=== PATIENT | female | born 1960 | race Caucasian/White ===

== ENCOUNTER 2025-05-08 08:09 | Inpatient (IN) | payer BC ==
[~2025-05-08] VITALS: Ht 149.9 cm; Wt 48.5 kg
[2025-05-08 09:02] LABS: MEAN PLATELET VOLUME 7.0 FL (7.4-10.4); RED CELL DISTRIBUTION WIDTH 13.8 % (11.5-14.5)
[2025-05-08 09:05] LABS: LEUKOCYTE ESTERASE ,URINE NEGATIVE (Neg); NITRITES, URINE NEGATIVE (Neg); OCCULT BLOOD,URINE NEGATIVE (Neg)
[2025-05-08 09:06] LABS: UA COLLECTION TYPE NON-SPECIFIED
[2025-05-08 09:19] LABS: CREATININE 0.93 MG/DL (0.40-0.90); TOTAL CARBON DIOXIDE 29.4 MMOL/L (24-32); eCRCL 42 ML/MIN; eGFR 61 ML/MIN
--- NOTE | 2025-05-08 10:15 | Physician Documentation ---
History of Present Illness ~ Chief Complaint: Abdominal Pain Stated Complaint: GALLBLADDER PAIN Time Seen by MD: 09:17 Source: patient Mode of Arrival: POV, Ambulatory Exam Limitations: no limitations HPI Chief Complaint: Abdominal pain Caveat: None Independent Historians: None History of Present Illness: Patient is a 64-year-old woman who is referred here from Dr. Barnard for abdominal pain elevated CA 125 and biliary sludge. Patient denies any fever. Patient has started having pain April 15. Has been intermittent and then severe over the last week. Patient is unable to sleep. Patient describes the pain as sharp and stabbing in her right upper quadrant. She states it feels like she has a baseball in her abdomen in the right upper quadrant. Patient has severe nausea. No vomiting, no diarrhea. Review of systems: All systems were reviewed and are negative except for what is indicated in the history of present illness. Past Medical History: Hypothyroidism Past Surgical History: None Social History: No tobacco use, no alcohol use, no drug use Medications: Reviewed as documented Nursing Notes Allergies: Reviewed as documented in Nursing Notes Medication Reconciliation Allergies: Coded Allergies: No Known Allergies (Unverified , 05/08/25) Scheduled Hydroxyzine Hcl* (Atarax*), 1 TAB PO DAILY, (Reported) Levothyroxine Sodium (Levothyroxine Sodium), 1 TAB PO DAILY, (Reported) Metoprolol Succinate (Metoprolol Succinate), 1 TAB PO HS, (Reported) Scheduled PRN Ibuprofen (Ibuprofen), 1 TAB PO DAILY PRN for pain, (Reported) Miscellaneous Medications Lorazepam (Ativan), (Reported) Review of Systems All Other Systems at this time: Reviewed and Negative ROS Patient denies any other acute symptoms other than above. All other systems are negative Physical Exam Vital Signs: RN Vital Signs have been reviewed: Yes, Temperature: 97.6, Source: Temporal, Heart Rate: 95, Respiratory Rate: 18, BP: 132/69, Pulse Oximetry: 99, Weight: 48.500 Oxygen Flow Rate: 0 Pulse Oximetry Reflects: adequate oxygenation Physical Exam General Appearance: Mild HEENT: Normal OP, moist oral mucosa, PERRL, EOMI Neck: supple, normal ROM, trachea midline Pulmonary: No respiratory distress, CTA, BS equal Cardiac: RRR, no murmur, rub or gallop, GI: nondistended, soft, right upper quadrant tenderness, normal bowel sounds, no guarding, no rebound Extremities: normal ROM, no swelling, non-tender Skin: intact, dry, warm, no rashes Neuro: AAOx3, speech is clear, no focal motor weakness Psych: normal affect, good eye contact, no apparent hallucination, normal speech Progress Results/Orders Results/Orders Orders - LAKESHIA COTTO MD Straight Cath For Urine Sample (05/08/25 08:35) Ed Iv Pain Medications (05/08/25 10:07) Monitor (05/08/25 10:07) Saline Lock (05/08/25 10:07) Ct Abdomen Pelvis (05/08/25 12:56) Ultrasound Of Abdomen (05/08/25 11:05) Page Hospitalist (05/08/25 12:20) Fill Out Med Reconciliation (05/08/25 12:20) Completed Orders - LAKESHIA COTTO MD Urinalysis, Cult If Indicated (05/08/25 08:35) Cbc/Diff (05/08/25 08:35) BMP (05/08/25 08:35) CMP (05/08/25 08:35) Type And Screen (05/08/25 08:35) Ondansetron Inj. (Zofran 4mg/2ml Vial) (05/08/25 10:10) Ketorolac Trometh 15mg/Ml Vial (Toradol (05/08/25 10:10) Ct Abdomen Pelvis (05/08/25 12:56) Diatr Meglu/Diatrizoate 30ml (Gastrograf (05/08/25 11:00) Lipase (05/08/25 08:52) Ultrasound Of Abdomen (05/08/25 11:05) Iohexol 300mg/Ml 100ml Inj. (Omnipaque-3 (05/08/25 12:35) Medications Received in ER Medications (Trade) Dose Ordered Sig/Gino Route PRN Reason Start Time Stop Time Status Last Admin Dose Admin (Zofran 4mg/2ml vial) 4 mg ONCE ONCE IV 05/08/25 10:10 05/08/25 10:11 DC 05/08/25 11:12 4 MG (Toradol injection) 15 mg ONCE ONCE IV 05/08/25 10:10 05/08/25 10:11 DC 05/08/25 11:13 15 MG (Gastrografin 66-10 oral solution) 10 ml Q2H PO 05/08/25 11:00 05/08/25 15:01 DC 05/08/25 11:55 10 ML Vital Signs 05/08/25 05/08/25 05/08/25 05/08/25 08:29 09:07 11:13 11:37 Temp 97.6 Pulse 95 80 Resp 16 18 18 18 B/P (MAP) 132/69 124/58 (80) Pulse Ox 99 99 O2 Flow Rate 0 0 Laboratory Tests Test 05/08/25 08:52 05/08/25 08:55 White Blood Count 7.4 Red Blood Count 4.93 Hemoglobin 13.1 Hematocrit 39.6 Mean Corpuscular Volume 80.3 Mean Corpuscular Hemoglobin 26.6 L Mean Corpuscular Hemoglobin Concent 33.1 Red Cell Distribution Width 13.8 Platelet Count 436 Mean Platelet Volume 7.0 L Neutrophils (%) (Auto) 80.4 H Lymphocytes (%) (Auto) 10.1 L Monocytes (%) (Auto) 5.5 Eosinophils (%) (Auto) 3.0 Basophils (%) (Auto) 1.0 Neutrophils # (Auto) 5.9 Lymphocytes # (Auto) 0.7 L Monocytes # (Auto) 0.4 Eosinophils # (Auto) 0.2 Basophils # (Auto) 0.1 CBC Comment Sodium Level 133 L Potassium Level 4.2 Chloride Level 98 L Carbon Dioxide Level 29.4 Anion Gap 6 L Blood Urea Nitrogen 7 Creatinine 0.93 H Estimated GFR/1.73 m2 61 BUN/Creatinine Ratio 7.5 L Glucose Level 85 Calcium Level 8.6 Total Bilirubin 0.5 Aspartate Amino Transf (AST/SGOT) 18 Alanine Aminotransferase (ALT/SGPT) 18 Alkaline Phosphatase 97 Total Protein 7.2 Albumin 3.6 Globulin 3.6 Albumin/Globulin Ratio 1.0 L Lipase 42 Chemistry Comments Urine Specimen Description Non-specified Urine Color Straw Urine Clarity Clear Urine pH 7.0 Urine Specific [place] <=1.005 Urine Protein Negative Urine Glucose (UA) Negative Urine Ketones 15 H Urine Occult Blood Negative Urine Nitrite Negative Urine Bilirubin Negative Urine Urobilinogen 0.2 Urine Leukocyte Esterase Negative Urine Culture Indicated Not ind Volume Urine Centrifuged 10 ml Urine Comment Medical Decision Making Findings Differential diagnosis includes but is not limited to: Biliary colic, cholelithiasis, cholecystitis, pancreatitis, gastritis, duodenitis, ovarian cancer Abdominal ultrasound, indication: Right upper quadrant abdominal pain Impression: 1. Thickened appearing gallbladder wall polyps within the gallbladder. Acute cholecystitis can not be completely excluded given the gallbladder wall thickness, although a negative sonographic flanagan's sign was reported. Correlate with clinical findings. 2. Small amount of free fluid adjacent to the liver and gallbladder. 3. Additional findings as described above. CT of the abdomen and pelvis with IV and oral contrast Impression: Gdcv-[id number]-[id number] ascites with areas of slightly hyperdense peritoneal thickening most prominent within the pelvis and associated scalloping of the liver. 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 Status post hysterectomy. Mild wall thickening of the distal stomach and duodenum which may be due to inadequate distention /surrounding ascites with a gastro duodenitis not completely excluded. Sigmoid diverticulosis with Limited evaluation for diverticulitis given surrounding ascites. Laboratory data independent interpretation: CBC: Unremarkable CMP: Unremarkable Urinalysis: Unremarkable Emergency department course/medical decision-making: Patient presents with ongoing abdominal pain that has worsened. Patient is given morphine 4 mg IV and Zofran 4 mg IV for severe nausea. Patient's ultrasound maybe consistent with acute cholecystitis. Can not be ruled out. However patient does not appear to have a Flanagan's sign. The patient has other concerning findings on her CT scan with hyperdense thickened peritoneum and scalloping of the liver. This is concerning for peritoneal carcinomatosis versus pseudomyxoma peritonie Test results, treatment plan and additional workup and all of the above was discussed with the patient. Consultation/communications: 10:10 a.m.: Case discussed with Dr. Malin. Patient's pain may or may not be secondary to her gallbladder. Patient has had a recent rise in her CA 125. Dr. Malin has recommended admission for further workup and possible cholecystectomy. 12:35 p.m.: Case discussed with our hospitalist Dr. Mendoza. He will evaluate her for admission. Proximally 2:00 p.m.: Case discussed with Dr. Malin regarding CT findings. He recommends diagnostic paracentesis with pathology. No cholecystectomy until pathology results obtained. Departure Disposition: ADMITTED INPATIENT Admitted to Inpatient Unit: to hospitalist Admission Level of Care: Med/Surg Impression: Primary Impression: Abdominal pain Qualified Codes: R10.11 - Right upper quadrant pain Condition: Stable Education Educated: Patient, Family Educated regarding: diagnosis, treatment Signature Scribe Signature: No scribe Attestation: No scribe LAKESHIA COTTO MD May 08, 2025 10:15
[2025-05-08] MEDS: ondansetron/PF 4mg/2ml inj IV ONE (11:12)
[2025-05-08] MEDS: ketorolac trometh 15mg/ml vial 15 MG/ML ML IV ONE (11:13)
[2025-05-08] MEDS: diatr meglu/diatrizoate 30ml oral sol.-(3 dose) bottle PO SCH (11:17)
[2025-05-08] MEDS ORDERED: iohexol 300mg/ml 100ml inj. ONE (12:35)
--- NOTE | 2025-05-08 12:52 | RADIOLOGY REPORT ---
CLINICAL INFORMATION: 64 years old, Female; Abdominal Pain R/O Gallbladder. TECHNIQUE: Grayscale sonographic imaging of the right upper quadrant of the abdomen was performed, a ssisted by color Doppler techniques. COMPARISON: None FINDINGS: The gallbladder wall measures 3.7 mm in thickness, abnormally thickened. There are polyp s visualized in the gallbladder, measuring up to 0.5 cm and 0.3 cm, respectively. Small amount of geri e fluid adjacent to the liver and gallbladder. Negative reported sonographic Flanagan's sign. The commo n bile duct measures 2.9 mm in diameter, within normal limits. Increased echogenicity of the liver suggesting fatty infiltration. Liver is within normal limits in s ize. Normal hepatopetal flow in the portal vein. The pancreas is mostly obscured by bowel gas. The right kidney measures 9.3 cm. There is no hydronephrosis. Right renal cortical echogenicity an d cortical thickness are within normal limits. IMPRESSION: 1. Thickened appearing gallbladder wall polyps within the gallbladder. Acute cholecystitis can not be completely excluded given the gallbladder wall thickness, although a negative sonographic flanagan's s ign was reported. Correlate with clinical findings. 2. Small amount of free fluid adjacent to the liver and gallbladder. 3. Additional findings as described above.
--- NOTE | 2025-05-08 13:22 | RADIOLOGY REPORT ---
Exam: CT CT ABDOMEN PELVIS W/ IV ORAL CONTRAST History: abdominal pain, elevated CA 125 Comparison Study: US ULTRASOUND OF ABDOMEN on DOS: 05/08/25 TECHNIQUE: Multidetector CT of the abdomen and pelvis with IV contrast. Axial, coronal and sagittal m ultiplanar reformats were obtained from the axial data set by the technologist. Radiation Dose Information: CT Dose: CTDI volume is 7.26 mGy. Dose-length product is 459.2 mGy*cm FINDINGS: The lung bases are clear. Partially visualized heart is unremarkable. Liver is normal in size. There are areas of slightly hyperdense Peritoneal thickening most prominent within the pelvis with associated scalloping of the liver. There is associated small to moderate asci kiki. No evidence of intraperitoneal free air. Liver is normal in size. Spleen, gallbladder, pancreas and adrenal glands unremarkable. Kidneys, and ureters unremarkable. Limited evaluation of the urinary bladder due to decompressed stat e with no gross abnormalities noted. Status post hysterectomy. Contrast is noted within the stomach, small and large bowel loops. Mild wall thickening of the distal stomach and duodenum. The remainder of the small bowel loops are contrast filled without significant distention. Appendix is unremarkable. Sigmoid diverticulosis with Limited evaluation for diverticuli tis given ascites. Moderate to large amount of fecal material within the colon. No evidence of aortic aneurysm or dissection. Mild atherosclerotic calcification of the aorta and bi lateral iliacs. Shotty mesenteric lymph nodes. Tiny fat containing umbilical hernia. The soft tissues are unremarkable. No evidence of acute osseou s abnormalities. IMPRESSION: [id number] ascites with areas of slightly hyperdense peritoneal thickening most prominent withi n the pelvis and associated scalloping of the liver. Correlate for pseudomyxoma peritoneal versus per itoneal carcinomatosis. Status post hysterectomy. Mild wall thickening of the distal stomach and duodenum which may be due to inadequate distention /yeung rrounding ascites with a gastro duodenitis not completely excluded. Sigmoid diverticulosis with Limited evaluation for diverticulitis given surrounding ascites.
[2025-05-08] MEDS ORDERED: ondansetron/PF 4mg/2ml inj IV PRN (14:00)
[2025-05-08] MEDS ORDERED: potassium Cl 40MEQ/1/2NS 520ml 520 ML IV PRN (14:00)
[2025-05-08] MEDS ORDERED: magnesium sulf-water 4G/100mL 100 ML IV PRN (14:00)
[2025-05-08] MEDS ORDERED: potassium Cl 20 mEq SR tablet PO PRN ×2 (14:00)
[2025-05-08] MEDS ORDERED: magnesium sulf-water 2g/50mL 50 ML IV PRN (14:00)
[2025-05-08] MEDS ORDERED: mag hydrox/Alum hydrox/simeth 30ml oral suspension PO PRN (14:00)
[2025-05-08] MEDS ORDERED: METO-395 PO (14:17)
[2025-05-08] MEDS ORDERED: HYDR-3686 PO (14:17)
[2025-05-08] MEDS ORDERED: LEVO75TA7 PO (14:17)
[2025-05-08] MEDS ORDERED: LORA-269 PO (14:17)
[2025-05-08] MEDS ORDERED: IBUP-1986 PO (14:17)
--- NOTE | 2025-05-08 14:27 | HISTORY AND PHYSICAL ---
History & Physical Providers to ~ History of Present Illness Reason for Admit\Complaint: Cholecystitis/ possible pseudomyxoma History of Present Illness This is a 64-year-old female who has been follow up periodically by Dr. Valdez for a umbilical hernia the patient recently has been having increased abdominal pain at the mid abdominal region she also for about six months has been experiencing right upper quadrant abdominal pain and can hardly eat any food was seen at [facility] ED a week ago and was sent home the patient has a follow up appointment with Dr. Malin who reviewed the images and recommended the patient go to the ED to have her gallbladder removed the patient also has a history of the ovarian cancer and had a total hysterectomy with bilateral oophorectomy 10 years ago. She has had normal see a CA 125 levels until the most recent lab which was elevated. The patient denies experiencing a fever however does complain of chills and nausea and vomiting and is having difficulty eating any food. The patient is not tolerate opiates and is requesting Toradol for pain management. Allergies: Coded Allergies: No Known Allergies (Unverified , 05/08/25) Home Medications Home Medications Active Reported Metoprolol Succinate 25 Mg Tab.sr.24h 1 Tab PO HS Atarax* (Hydroxyzine HCl) 25 Mg Tablet 1 Tab PO DAILY Ibuprofen 800 Mg Tablet 1 Tab PO DAILY PRN Ativan (Lorazepam) 1 Mg Tablet Levothyroxine Sodium 75 Mcg Tablet 1 Tab PO DAILY Past Medical History Past Medical History Umbilical hernia times 10 years Ovarian cancer (status post total hysterectomy with bilateral salpingo- oophorectomy) cancer free times 10 years Hypothyroidism Past Surgical History Surgical History Comment Total thyroidectomy (secondary to multiple benign masses) Total hysterectomy with bilateral salpingo-oophorectomy Family History Family History: FH: COPD (chronic obstructive pulmonary disease) FATHER MOTHER Past Social History Social History Comment Patient denes history of smoking/ drinking alcohol nor any illicit drug use Full Code Status ROS ROS Except for positives in the HPI the rest of the 14 point review systems is negative Exam Vitals: Vital Signs Date Time Temp Pulse Resp B/P (MAP) Pulse Ox O2 Delivery O2 Flow Rate FiO2 05/08/25 14:18 102 18 138/69 (92) 98 0 05/08/25 08:29 97.6 General: Gen. No acute distress alert and oriented 4 Lungs clear to ascultation bilaterally, no wheezes rales or rhonchi appreciated Heart normal sinus rhythm no murmurs rubs or clicks noted Abdomen soft moderate right upper quadrant tenderness, mild generalized tenderness bowel sounds are normoactive Lower extremities no clubbing cyanosis, nor edema appreciated bilaterally Diagnostic Data Last Recorded Lab Results: 05/08/25 0852 05/08/25 0852 Advance Care Planning Advanced Care plannin - 30 Minutes Problems: (1) Abdominal pain Status: Acute Additional Plan # cholecystitis Dr. 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 Dr. Jones ED physician discussed the findings with Dr. Malin who has requested a diagnostic paracentesis which is ordered along with a cytology of the peritoneal fluid. # hypothyroidism # status post total thyroidectomy for benign masses Continue levothyroxine # hyponatremia Monitor daily CMP # DVT prophylaxis SQ Lovenox I spent a total of 17 minutes on reviewing various resuscitative measures/ ACP with the patient at the time of admission. The patient has decided on full code status Date of Service: May 08, 2025 Billing Provider: RAFAL JAVIER DO Common Visit Codes: [id number] INP/OBS CARE (HIGH) Secondary Visit Codes: [id number] CARE PLAN 30 MINUTES Problem Qualifiers (1) Abdominal pain: Abdominal location: right upper quadrant Qualified Codes: R10.11 - Right upper quadrant pain RAFAL JAVIER DO May 08, 2025 14:27
[2025-05-08] MEDS: normal saline 1000ml 1,000 ML IV SCH (15:24)
[2025-05-08] MEDS: magnesium hydroxide 30ml (MOM) UD suspension PO PRN (15:36)
[2025-05-08] MEDS: piperacillin/tazo 4.5gm/100ml 100 ML IV SCH (16:25)
[2025-05-08 16:50] VITALS: BP 125/51; PULSE 76; RESP 16; TEMP 98.1; O2SAT 98
[2025-05-08 18:00] VITALS: BP 125/62; PULSE 84; RESP 14; TEMP 98.6; O2SAT 98
[2025-05-08] MEDS: SINCALIDE IV ONE (20:00)
[2025-05-08] MEDS: NORMAL SALINE IV ONE (20:00)
[2025-05-08] MEDS: docusate sod 100mg capsule PO SCH (20:00)
[2025-05-08 20:15] VITALS: RESP 16; O2SAT 97
--- NOTE | 2025-05-08 20:39 | PROGRESS NOTE ---
Progress Note ID Providers to CC ~ Progress Note Progress Note: pt seen-ct noted-pt needs paracentesis KIMBERLY ARROYO MD May 08, 2025 20:39
[2025-05-08] MEDS: enoxaparin 40mg/0.4ml syringe SQ SCH (20:50)
[2025-05-08] MEDS: metoprolol succinate 25mg (24-HOUR) SR. Tablet PO SCH (20:51)
[2025-05-08] MEDS: K and/or MAG REPLACEMENT MC SCH (20:51)
[2025-05-08 22:00] VITALS: BP 118/48; PULSE 78; RESP 16; TEMP 98; O2SAT 97
[2025-05-09 06:00] VITALS: BP 128/61; PULSE 91; RESP 16; TEMP 97.7; O2SAT 99
[2025-05-09 06:09] LABS: MEAN PLATELET VOLUME 7.3 FL (7.4-10.4); RED CELL DISTRIBUTION WIDTH 13.4 % (11.5-14.5)
[2025-05-09 06:30] LABS: CREATININE 0.79 MG/DL (0.40-0.90); TOTAL CARBON DIOXIDE 25.3 MMOL/L (24-32); eCRCL 50 ML/MIN; eGFR 74 ML/MIN
[2025-05-09] MEDS: levoTHYROXINE 75mcg tablet PO SCH (07:52)
[2025-05-09 10:00] VITALS: BP 111/52; PULSE 79; RESP 16; TEMP 98.2; O2SAT 100
[2025-05-09] MEDS: SINCALIDE IV ONE (11:50)
[2025-05-09] MEDS: NORMAL SALINE IV ONE (11:50)
--- NOTE | 2025-05-09 12:48 | RADIOLOGY REPORT ---
Procedure: NM NM HIDA SCAN Exam Date: 05/09/2025 09:46 AM Clinical History: cystic duct obstruction Comparison Study: None Technique: Following the intravenous administration of 6 mCi of technetium 99m labeled Choletec multi ple planar abdominal planar images were obtained in anterior projection in 5 minute intervals for 60 minutes . Right lateral images were obtained at 60 minutes after injection. Findings: The liver appears grossly normal in size. There is no abnormal persistence of the cardiac or blood po ol activity. There is prompt visualization of the gallbladder and excretion of activity into the smal l bowel. Impression: 1. No evidence of cystic duct or common bile duct obstruction.
--- NOTE | 2025-05-09 14:50 | PROGRESS NOTE ---
Daily Progress Note Providers to CC ~ Antibiotic Timeout Antibiotic Ordered?: No Subjective Chief complaint- Objective Vital Signs Date Time Temp Pulse Resp B/P (MAP) Pulse Ox O2 Delivery O2 Flow Rate FiO2 05/09/25 10:00 98.2 79 16 111/52 (71) 100 Room Air 05/08/25 14:18 0 Result Diagram: 05/09/25 0538 05/09/25 0538 Gen. No acute distress alert and oriented 4 Lungs clear to ascultation bilaterally, no wheezes rales or rhonchi appreciated Heart normal sinus rhythm no murmurs rubs or clicks noted Abdomen soft moderate right upper quadrant tenderness, mild generalized tenderness bowel sounds are normoactive Lower extremities no clubbing cyanosis, nor edema appreciated bilaterally Problem\Assessment\Plan Problems/Diagnosis: (1) Abdominal pain Date of Service: May 09, 2025 Billing Provider: KATHARINA CRAIN MD Common Visit Codes: [id number] INP/OBS CARE(HIGH) Problem Qualifiers (1) Abdominal pain: Qualified Codes: R10.11 - Right upper quadrant pain KATHARINA CRAIN MD May 09, 2025 14:50
[2025-05-09 18:00] VITALS: BP 119/57; PULSE 108; RESP 18; TEMP 97.9; O2SAT 98
--- NOTE | 2025-05-09 20:44 | PROGRESS NOTE ---
Progress Note ID Providers to CC ~ Progress Note Progress Note: hida negative/paracentesis pending KIMBERLY ARROYO MD May 09, 2025 20:44
[2025-05-09] MEDS: ketorolac trometh 15mg/ml vial 15 MG/ML ML IV PRN (21:11)
[2025-05-09 22:41] VITALS: BP 125/55; PULSE 94; RESP 16; TEMP 97.4; O2SAT 100
[2025-05-10 05:44] LABS: MEAN PLATELET VOLUME 7.3 FL (7.4-10.4); RED CELL DISTRIBUTION WIDTH 13.8 % (11.5-14.5)
[2025-05-10 06:00] VITALS: BP 112/48; PULSE 81; RESP 15; TEMP 97.1; O2SAT 100
[2025-05-10 06:07] LABS: CREATININE 0.93 MG/DL (0.40-0.90); TOTAL CARBON DIOXIDE 25.6 MMOL/L (24-32); eCRCL 42 ML/MIN; eGFR 61 ML/MIN
[2025-05-10 10:00] VITALS: BP 119/59; PULSE 86; RESP 14; TEMP 97.6; O2SAT 99
[2025-05-10] MEDS ORDERED: CIPR-259 PO (13:31)
[2025-05-10] MEDS ORDERED: METR-159 PO (13:31)
[2025-05-10] MEDS ORDERED: FURO-150 PO (13:32)
[2025-05-10] MEDS ORDERED: SPIR25TA5 PO (13:32)
[2025-05-10] MEDS ORDERED: LEVO25TA2 PO (13:33)
--- NOTE | 2025-05-10 13:38 | DISCHARGE SUMMARY ---
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 Malin and Dr. Coe Complications: None Condition on DC: Stable New Medications: Ciprofloxacin HCl (Cipro) 500 Mg Tablet 1 TAB PO Q12H for 7 Days, #14 TAB Furosemide (Lasix) 20 Mg Tablet 20 MG PO DAILY for 30 Days, #30 TAB levothyroxine sodium* (Synthroid*) 25 Mcg Tablet 1 TAB PO DAILY for 30 Days, #30 TAB Metronidazole* (Flagyl*) 500 Mg Tablet 1 TAB PO TID for 7 Days, #21 TAB Spironolactone (Spironolactone) 25 Mg Tablet 25 MG PO DAILY, #30 TAB Continued Medications: Hydroxyzine Hcl* (Atarax*) 25 Mg Tablet 1 TAB PO DAILY Ibuprofen (Ibuprofen) 800 Mg Tablet 1 TAB PO DAILY PRN for pain Levothyroxine Sodium (Levothyroxine Sodium) 75 Mcg Tablet 1 TAB PO DAILY Lorazepam (Ativan) 1 Mg Tablet 1 TAB PO TID PRN for for anxiety/agitation Metoprolol Succinate (Metoprolol Succinate) 25 Mg Tab.sr.24h 1 TAB PO HS Discharge Summary: History of Present Illness This is a 64-year-old female who has been follow up periodically by Dr. Valdez for a umbilical hernia the patient recently has been having increased abdominal pain at the mid abdominal region she also for about six months has been experiencing right upper quadrant abdominal pain and can hardly eat any food was seen at [facility] ED a week ago and was sent home the patient has a follow up appointment with Dr. Malin who reviewed the images and recommended the patient go to the ED to have her gallbladder removed the patient also has a history of the ovarian cancer and had a total hysterectomy with bilateral oophorectomy 10 years ago. She has had normal see a CA 125 levels until the most recent lab which was elevated. The patient denies experiencing a fever however does complain of chills and nausea and vomiting and is having difficulty eating any food. The patient is not tolerate opiates and is requesting Toradol for pain management. Patient is a 64-year-old with a history of ovarian cancer was admitted secondary to abdominal pain in right upper quadrant for acute cholecystitis patient was noted to have an elevated CA-125 of more than 3000. This thought to be secondary to carcinomatosis. Patient had mild to moderate ascitic fluid patient had abdominal discomfort was treated with IV Zosyn. HIDA scan was done per Dr. Malin recommendations which was negative. We consulted director pharmacy services for a paracentesis for both therapeutic as well as diagnostic. *Problems/Diagnosis: (1) Abdominal pain Status: Acute Total Time Spent on D/C: > 30 Minutes Date of Service: May 10, 2025 Billing Provider: KATHARINA CRAIN MD Common Visit Codes: [id number]-NKJ/[id number] DISCH DAY >30min Problem Qualifiers (1) Abdominal pain: Qualified Codes: R10.11 - Right upper quadrant pain KATHARINA CRAIN MD May 10, 2025 13:38
--- NOTE | 2025-05-11 08:28 | RADIOLOGY REPORT ---
PROCEDURE: ULTRASOUND GUIDED PARACENTESIS HISTORY: 64 Female requiring paracentesis. TECHNIQUE: The risks and benefits of the procedure including but not limited to bleeding, infection and injury t o abdominal organs were explained to the patient and written informed consent was obtained. Not enough fluid noted. IMPRESSION: Not enough fluid noted for para.
--- NOTE | 2025-05-11 11:49 | CONSULTATION REPORT - RESIDENT ---
Consult Providers to CC Resident Creating Document: ROLANDO TAN CC: FARSHAD DAWN MD History of Present Illness Reason for Admit\Complaint: Abdominal pain History of Present Illness Patient is a 64-year-old with a history of ovarian cancer was admitted secondary to abdominal pain in right upper quadrant for acute cholecystitis patient was noted to have an elevated CA-125 of more than 3000. This thought to be secondary to carcinomatosis. ICU has been consulted for therapeutic and diagnostic paracentesis. Allergies: Coded Allergies: No Known Allergies (Unverified , 05/08/25) Home Medications Home Medications Active Synthroid* (Levothyroxine Sodium) 25 Mcg Tablet 1 Tab PO DAILY 30 Days Spironolactone 25 Mg Tablet 25 Mg PO DAILY Lasix (Furosemide) 20 Mg Tablet 20 Mg PO DAILY 30 Days Flagyl* (Metronidazole) 500 Mg Tablet 1 Tab PO TID 7 Days Cipro (Ciprofloxacin) 500 Mg Tablet 1 Tab PO Q12H 7 Days Reported Metoprolol Succinate 25 Mg Tab.sr.24h 1 Tab PO HS Atarax* (Hydroxyzine HCl) 25 Mg Tablet 1 Tab PO DAILY Ibuprofen 800 Mg Tablet 1 Tab PO DAILY PRN Ativan (Lorazepam) 1 Mg Tablet 1 Tab PO TID PRN Levothyroxine Sodium 75 Mcg Tablet 1 Tab PO DAILY Family History Family History: FH: COPD (chronic obstructive pulmonary disease) FATHER MOTHER Exam Vitals: Vital Signs Date Time Temp Pulse Resp B/P (MAP) Pulse Ox O2 Delivery O2 Flow Rate FiO2 05/10/25 10:00 97.6 86 14 119/59 (79) 99 Room Air 05/08/25 14:18 0 General: General: awake, alert oriented to place, time, and person HEENT: No pallor present, no icterus, moist mucous membranes Neck: No masses and tenderness Resp: Unlabored. Lungs clear to auscultation bilaterally. Chest: Normal expansion Cardiovascular: Regular Rate and rhythm, normal S1 and S2 without murmur, rub or gallop Abdomen: Soft and nontender, no organomegaly, no guarding and rigidity, bowel sounds present Neuro: No focal weakness in the upper and lower limb muscles, power of the muscles 5/5 bilateral upper and lower extremities, normal reflexes bilaterally. Cranial nerves intact Extremities: No cyanosis,clubbing or edema Skin: Warm and Dry. No lesions Psych: Normal affect Diagnostic Data Last Recorded Lab Results: 05/10/25 0441 05/10/25 0441 Additional Plan Patient is a 64-year-old with a history of ovarian cancer was admitted secondary to abdominal pain in right upper quadrant for acute cholecystitis patient was noted to have an elevated CA-125 of more than 3000. This thought to be secondary to carcinomatosis. ICU has been consulted for therapeutic and diagnostic paracentesis. Ascites Patient was evaluated at bedside. After performing ultrasound, it was determined that there was not enough fluid for paracentesis. The procedure will not be performed at this time. Rest as per hospitalist Rolando Khan MD Internal Medicine Resident PGY-2 Date of Service: May 10, 2025 Billing Provider: FARSHAD DAWN MD, LEONARDO LUIS May 11, 2025 11:49
== END 2025-05-10 14:36 | disposition home or self-care (01) | DRG 445 ==
LOC: ER 08:11 → ED HOLD 14:10 → UNDOADMIN 14:10 → ORTHO 4S 14:10 → UNDOADMIN 16:51 → ORTHO 4S 16:51
PROVIDERS: ADMIT Family Medicine; ATTEND Family Medicine
PROC: BW211ZZ Computerized Tomography (CT Scan) of Abdomen and Pelvis using Low Osmolar Contrast (ICD-10-PCS; principal; 2025-05-08)
PROC: CF141ZZ Planar Nuclear Medicine Imaging of Gallbladder using Technetium 99m (Tc-99m) (ICD-10-PCS; 2025-05-09)
DX: K81.0 Acute cholecystitis (principal); C78.6 Secondary malignant neoplasm of retroperitoneum and peritoneum; E87.1 Hypo-osmolality and hyponatremia; R18.8 Other ascites; E03.9 Hypothyroidism, unspecified; Z85.43 Personal history of malignant neoplasm of ovary; Z87.891 Personal history of nicotine dependence; Z90.710 Acquired absence of both cervix and uterus
CPT/HCPCS: 36415; 74177; 76700; 76705; 78227; 80053; 81003; 83690; 83735; 84443; 85025; 86304; 86885; 86900; 86901; 87081; 96365; 96375; 99285; A9537; G0378; J1650; J1885; J2405; J2543; J2805; J7030; Q9963; Q9967

== ENCOUNTER 2025-05-30 14:04 | Inpatient (IN) | payer BC ==
[~2025-05-30] VITALS: Ht 149.9 cm; Wt 48.6 kg
[~2025-05-30 14:04] MED LIST: FURO-150 PO; HYDR-3686 PO; IBUP-1986 PO; LEVO25TA2 PO; LEVO75TA7 PO; LORA-269 PO; METO-395 PO; SPIR25TA5 PO
--- NOTE | 2025-05-30 14:26 | Physician Documentation ---
History of Present Illness ~ Chief Complaint: Abdominal Pain Stated Complaint: GALLBLADDER PAIN Time Seen by MD: 14:20 HPI 64-year-old female, with a reported history of gallbladder sludge, who presents with right upper quadrant pain. The patient also has a history of ovarian cancer with carcinomatosis. She tells me that over the past month she has had severe right upper quadrant pain every time she tries to eat so she has not really been able to eat. She reports some mild associated nausea. She tells me she was sent in from the oncology team with a plan for surgical removal of her gallbladder. No fevers, chills, or other new or different symptoms. She does see a surgeon, Dr. Young Medication Reconciliation Allergies: Coded Allergies: cyclobenzaprine (Unverified Allergy, Unknown, 05/30/25) quetiapine (Unverified Allergy, Unknown, 05/30/25) Scheduled Furosemide (Lasix), 20 MG PO DAILY Hydroxyzine Hcl* (Atarax*), 1 TAB PO DAILY, (Reported) Levothyroxine Sodium (Levothyroxine Sodium), 1 TAB PO DAILY, (Reported) Metoprolol Succinate (Metoprolol Succinate), 1 TAB PO HS, (Reported) Spironolactone (Spironolactone), 25 MG PO DAILY levothyroxine sodium* (Synthroid*), 1 TAB PO DAILY Scheduled PRN Ibuprofen (Ibuprofen), 1 TAB PO DAILY PRN for pain, (Reported) Lorazepam (Ativan), 1 TAB PO TID PRN for for anxiety/agitation, (Reported) Past Medical History Patient History: FH: COPD (chronic obstructive pulmonary disease) FATHER MOTHER Review of Systems Constitutional: Denies: fever Gastrointestinal: Reports: abdominal pain, nausea, vomiting Physical Exam Vital Signs: Temperature: 97.9, Source: Oral, Heart Rate: 127, Respiratory Rate: 17, BP: 138/65, Pulse Oximetry: 97, Weight: 48.600 Physical Exam General: This is a thin middle-aged female, not in acute distress HEENT: Atraumatic, oropharynx appears dry with cracked lips Heart: Mild tachycardic, appears regular Lungs: normal work of breathing, normal oxygen saturation on room air Abdomen: Soft, mildly distended abdomen. She is tender to palpation in the right upper quadrant with voluntary guarding, does not have generalized tenderness or guarding Neuro: Alert and oriented, no focal deficits Psychiatric: Calm and cooperative with exam Progress Results/Orders Results/Orders Orders - CHAZ CASTANO MD * Iv Access / Saline Lock * (05/30/25 14:13) Ct Abdomen Pelvis (05/30/25 15:20) Page Hospitalist (05/30/25 15:21) Completed Orders - CHAZ CASTANO MD Cbc/Diff (05/30/25 14:13) BMP (05/30/25 14:13) Lipase (05/30/25 14:13) CMP (05/30/25 14:13) Ua W/Microscopic, Cult If Ind (05/30/25 14:26) Ketorolac Trometh 15mg/Ml Vial (Toradol (05/30/25 14:50) Ondansetron Inj. (Zofran 4mg/2ml Vial) (05/30/25 14:50) Normal Saline 1000ml (0.9% Sodium Chlori (05/30/25 14:50) Ct Abdomen Pelvis (05/30/25 15:20) Iohexol 300mg/Ml 100ml Inj. (Omnipaque-3 (05/30/25 15:24) Hgb A1c (05/30/25 14:32) Vital Signs 05/30/25 05/30/25 05/30/25 05/30/25 14:09 14:36 14:39 15:04 Temp 97.9 97.9 Pulse 127 113 116 Resp 17 19 19 17 B/P (MAP) 138/65 122/68 (86) 12/67 (49) Pulse Ox 97 98 97 O2 Flow Rate 0 0 05/30/25 05/30/25 05/30/25 05/30/25 15:04 16:30 16:30 18:15 Temp 97.9 97.9 Pulse 113 110 Resp 17 16 16 16 B/P (MAP) 128/60 (82) 134/75 (94) Pulse Ox 98 99 O2 Flow Rate 0 0 05/30/25 19:20 Pulse 115 Resp 16 B/P (MAP) 133/80 (97) Pulse Ox 98 O2 Flow Rate 0 Laboratory Tests Test 05/30/25 14:26 05/30/25 14:32 Urine Specimen Description Cln catch midstream Urine Color Yellow Urine Clarity Clear Urine pH 6.0 Urine Specific [place] 1.010 Urine Protein Negative Urine Glucose (UA) Negative Urine Ketones 40 H Urine Occult Blood Trace-intact Urine Nitrite Negative Urine Bilirubin Negative Urine Urobilinogen 0.2 Urine Leukocyte Esterase Negative Urine RBC 0-2 Urine WBC 0-4 Urine Squamous Epithelial Cells Few Urine Transitional Epithelial Cells Few Urine Bacteria None seen Urine Culture Indicated Not ind Volume Urine Centrifuged 10 ml Urine Comment White Blood Count 8.6 Red Blood Count 5.05 Hemoglobin 13.3 Hematocrit 39.8 Mean Corpuscular Volume 78.8 Mean Corpuscular Hemoglobin 26.3 L Mean Corpuscular Hemoglobin Concent 33.3 Red Cell Distribution Width 14.1 Platelet Count 724 H Mean Platelet Volume 6.7 L Neutrophils (%) (Auto) 88.4 H Lymphocytes (%) (Auto) 5.1 L Monocytes (%) (Auto) 5.4 Eosinophils (%) (Auto) 0.3 Basophils (%) (Auto) 0.8 Neutrophils # (Auto) 7.6 Lymphocytes # (Auto) 0.4 L Monocytes # (Auto) 0.5 Eosinophils # (Auto) 0.0 Basophils # (Auto) 0.1 CBC Comment Sodium Level 138 Potassium Level 3.1 L Chloride Level 96 L Carbon Dioxide Level 31.4 Anion Gap 11 Blood Urea Nitrogen 10 Creatinine 0.99 H Estimated GFR/1.73 m2 57 BUN/Creatinine Ratio 10.1 Glucose Level 108 H Hemoglobin A1c 5.3 Calcium Level 8.7 Total Bilirubin 0.4 Aspartate Amino Transf (AST/SGOT) 25 Alanine Aminotransferase (ALT/SGPT) 22 Alkaline Phosphatase 71 Total Protein 7.3 Albumin 2.9 L Globulin 4.4 H Albumin/Globulin Ratio 0.7 L Lipase 35 Chemistry Comments EKG/XRAY/CT/US/VASC/MRI CT : Impression I personally interpreted the CT scan, and this shows carcinomatosis findings similar to previous CT scan, no other acute change Consults/PCP Consults/PCP : Additional Comment Consult: I spoke to Dr. Young, the patient's general surgeon. He recommends admission to the hospitalist service, repeat CT scan, and he will come evaluate the patient Consult: I spoke to the internal medicine service, for admission in the hospital -I spoke again to the hospitalist, who tells me that the surgeon was going to come evaluate the patient to determine the disposition Medical Decision Making Additional Comments Differential diagnosis includes Gallbladder disease, carcinomatosis, bowel obstruction, pancreatitis, gastritis, dehydration, electrolyte derangement Assessment The patient presents with 1 month of right upper quadrant pain, and difficulty eating. She reportedly was sent in to see the surgeon about getting her gallbladder removed. Her blood work is unremarkable, no change in her LFTs. I spoke to her surgeon as above. CT scan does not show any new or acute changes. She will be admitted to the medicine service with surgical evaluation planned. Departure Impression: Primary Impression: Right upper quadrant pain Referrals: NO PRIMARY CARE PROVIDER (PCP) Signature Scribe Signature: maricarmen Attestation: CHAZ Llanos MD May 30, 2025 14:26
[2025-05-30 14:39] LABS: RED CELL DISTRIBUTION WIDTH 14.1 % (11.5-14.5)
[2025-05-30 14:39] LABS: LEUKOCYTE ESTERASE ,URINE NEGATIVE (Neg); NITRITES, URINE NEGATIVE (Neg); OCCULT BLOOD,URINE TRACE-INTACT (Neg)
[2025-05-30 14:40] LABS: UA COLLECTION TYPE CLN CATCH MIDSTREAM
[2025-05-30 14:42] LABS: MEAN PLATELET VOLUME 6.7 FL (7.4-10.4)
[2025-05-30 14:47] LABS: SQUAMOUS EPITHELIAL CELL,UR FEW /LPF (FEW)
[2025-05-30 15:00] LABS: CREATININE 0.99 MG/DL (0.40-0.90); TOTAL CARBON DIOXIDE 31.4 MMOL/L (24-32); eCRCL 40 ML/MIN; eGFR 57 ML/MIN
[2025-05-30] MEDS: ondansetron/PF 4mg/2ml inj IV ONE (15:03)
[2025-05-30] MEDS: normal saline 1000ml 1,000 ML IV ONE (15:03)
[2025-05-30] MEDS: ketorolac trometh 15mg/ml vial 15 MG/ML ML IV ONE (15:04)
[2025-05-30] MEDS ORDERED: iohexol 300mg/ml 100ml inj. ONE (15:24)
--- NOTE | 2025-05-30 15:59 | RADIOLOGY REPORT ---
CLINICAL HISTORY: ruq pain TECHNIQUE: CT of the abdomen and pelvis was performed with IV contrast. This exam was performed according to our departmental dose optimization program. Up-to-date CT equipment and radiation dose reduction techniques are utilized as appropriate. CTDI 7.8 DLP 365.4 COMPARISON: CT CT ABDOMEN PELVIS W/ IV ORAL CONTRAST on DOS: 05/08/25, US ULTRASOUND OF ABDOMEN on DOS: 05/08/25 FINDINGS: Abdomen/Pelvis: The spleen, pancreas, adrenal glands, kidneys, bladder, and gallbladder are unremarkable. The uterus and ovaries are absent. There is similar appearing extensive peritoneal carcinomatosis with moderate omental caking, moderate amount of ascites, and extensive peritoneal nodules. The abdominal aorta is normal in course and caliber. There are mild atherosclerotic calcifications. There is no free intraperitoneal air. There is no enlarged abdominal or pelvic lymph node. There is no bowel wall thickening or dilatation. The appendix is normal. There is mild sigmoid colon diverticulosis. Other: The imaged lower thorax demonstrates a trace right pleural effusion. There is a small hiatal hernia. No acute osseous abnormality is evident. IMPRESSION: Hysterectomy with bilateral salpingooophorectomy. Similar periods of peritoneal carcinomatosis with moderate amount of ascites, moderate omental caking, and extensive peritoneal soft tissue nodules. Trace right pleural effusion.
[2025-05-30] MEDS ORDERED: ondansetron/PF 4mg/2ml inj IV PRN (18:55)
[2025-05-30] MEDS ORDERED: potassium Cl 40MEQ/1/2NS 520ml 520 ML IV PRN (18:55)
[2025-05-30] MEDS ORDERED: magnesium sulf-water 4G/100mL 100 ML IV PRN (18:55)
[2025-05-30] MEDS ORDERED: magnesium sulf-water 2g/50mL 50 ML IV PRN (18:55)
[2025-05-30] MEDS ORDERED: potassium Cl 20 mEq SR tablet PO PRN (18:55)
[2025-05-30] MEDS ORDERED: HYDROmorphone inj. 0.5 MG/0.5 ML DISP.SYRIN IV PRN (18:55)
[2025-05-30] MEDS ORDERED: HYDROmorphone/PF 0.2 MG/ML SYRINGE IV PRN (18:55)
[2025-05-30] MEDS ORDERED: magnesium Cl slow-release 64mg tablet PO PRN (18:55)
[2025-05-30] MEDS: magnesium hydroxide 30ml (MOM) UD suspension PO PRN (19:14)
[2025-05-30] MEDS: mag hydrox/Alum hydrox/simeth 30ml oral suspension PO PRN (19:14)
[2025-05-30] MEDS: potassium Cl 20 mEq SR tablet PO PRN (19:16)
[2025-05-30] MEDS: normal saline 1000ml 1,000 ML IV SCH (19:17)
--- NOTE | 2025-05-30 19:21 | HISTORY AND PHYSICAL-Residence ---
History & Physical Providers to CC Resident Creating Document: DESTINI MURPHY, RES ~ History of Present Illness Primary Medical Doctor: SIMONA DALY Reason for Admit\Complaint: Right upper quadrant pain History of Present Illness A 64-year-old female with history of ovarian carcinoma diagnosed in 2017 (status post hysterectomy, now with known carcinomatosis, liver lesions, ascites, and pleural effusion), presents with one month of progressively worsening right upper quadrant abdominal pain. The pain is sharp and shooting, typically triggered by eating, and has been associated with nausea and occasional vomiting. Because of this, she has had markedly reduced oral intake and reports unintentional weight loss of approximately 2040 lbs over the past 46 months. She denies fevers, chills, jaundice, chest pain, or shortness of breath. She was evaluated by her oncology team and referred to her general surgeon, Dr. Young, who advised admission for further evaluation and possible cholecystectomy. The patient was previously seen at [facility] in April for similar symptoms, where liver lesions were noted. In the ED today, vitals are stable, labs including LFTs are unremarkable, and repeat CT scan shows stable carcinomatosis without acute new findings. Patient had a previous admission in April, where a CT scan was done for possible suspicion of acute cholecystitis but however patient had ascites which required repeated paracentesis. Also, HIDA was negative hence she did not undergo any surgery and was discharged home. Allergies: Coded Allergies: cyclobenzaprine (Unverified Allergy, Unknown, 05/30/25) quetiapine (Unverified Allergy, Unknown, 05/30/25) Home Medications Home Medications Active Synthroid* (Levothyroxine Sodium) 25 Mcg Tablet 1 Tab PO DAILY 30 Days Spironolactone 25 Mg Tablet 25 Mg PO DAILY Lasix (Furosemide) 20 Mg Tablet 20 Mg PO DAILY 30 Days Reported Metoprolol Succinate 25 Mg Tab.sr.24h 1 Tab PO HS Atarax* (Hydroxyzine HCl) 25 Mg Tablet 1 Tab PO DAILY Ibuprofen 800 Mg Tablet 1 Tab PO DAILY PRN Ativan (Lorazepam) 1 Mg Tablet 1 Tab PO TID PRN Levothyroxine Sodium 75 Mcg Tablet 1 Tab PO DAILY Past Medical History Past Medical History Umbilical hernia times 10 years Ovarian cancer (status post total hysterectomy with bilateral salpingo- oophorectomy) cancer free times 10 years Hypothyroidism Past Surgical History Surgical History Comment Total thyroidectomy (secondary to multiple benign masses) Total hysterectomy with bilateral salpingo-oophorectomy Family History Family History: FH: COPD (chronic obstructive pulmonary disease) FATHER MOTHER Past Social History Social History Comment Patient denes history of smoking/ drinking alcohol nor any illicit drug use ROS ROS Reviewed in full. All negative except for pertinent positive HPI. Constitutional: Denies: fever Gastrointestinal: Reports: abdominal pain, nausea, vomiting Exam Vitals: Vital Signs Date Time Temp Pulse Resp B/P (MAP) Pulse Ox O2 Delivery O2 Flow Rate FiO2 05/30/25 18:15 97.9 110 16 134/75 (94) 99 0 General: Awake , alert, and oriented x4, in apparent distress HEENT: Atraumatic, normocephalic, EOMI, anicteric sclera ; pink conjunctiva Neck: Trachea midline. Supple, full range of motion, no JVD Cardiac: Regular rhythm, regular rate with systolic murmurs all over the precordium. Respiratory: Equal breath sounds bilaterally, no tachypnea, no wheezing ,rub or rales, Chest wall is symmetric and without deformity. Gastrointestinal: Abdomen symmetric, non-distended, right upper quadrant tenderness 5 on 10 in intensity with no hepatosplenomegaly. Bowel sounds heard Musculoskeletal: No pedal edema, no cyanosis Neurological: Speech is clear, alert, and oriented x 4. No motor or sensory deficit, deep tendon reflexes normal, cerebellar intact. Cranial nerves II-XII intact. Skin: Warm and dry Diagnostic Data Last Recorded Lab Results: 05/30/25 1432 05/30/25 1432 Advance Care Planning Advanced Care plannin - 30 Minutes Additional Plan Ovarian Carcinoma with Carcinomatosis, Hepatic Lesions, Ascites, Pleural Effusion RUQ Pain secondary to above Repeat CT this admission showed: Hysterectomy with bilateral salpingooophorectomy. Similar periods of peritoneal carcinomatosis with moderate amount of ascites, moderate omental caking, and extensive peritoneal soft tissue nodules. Trace right pleural effusion 1 month of postprandial sharp RUQ pain with nausea/vomiting and poor PO intake History of gallbladder sludge; referred by surgeon (Dr. Young) for possible cholecystectomy per patient But, according Dr. Young, no further surgery and patient requires pain management CT abdomen/pelvis: stable carcinomatosis, no acute cholecystitis or obstruction LFTs normal Admit to surgical floor NPO after midnight pending surgical evaluation Pain control with multimodal analgesia; opioids PRN Antiemetics (ondansetron) PRN Dr. Young to evaluate for surgical intervention Abdominal pain History of umbilical hernia History of ovarian cancer- cancer free for several years however recent CA 125 was markedly elevated Ovarian Carcinoma with Carcinomatosis, Hepatic Lesions, Ascites, Pleural Effusion Advanced disease; poor oral intake, 2040 lb weight loss over past 46 months Patient follows valvular Oncology outpatient Consider palliative care consult for symptom management and [id number] discussions Malnutrition / Weight Loss Severe weight loss due to poor oral intake and chronic pain/nausea Nutrition consult for assessment IV fluids, electrolyte monitoring/repletion Nausea/Vomiting Likely multifactorial (carcinomatosis) Continue antiemetics PRN Code Status: Full code Analgesia/ Sedation: Morphine/Dilaudid Line/tubes: P IV GI Prophylaxis: Protonix Nutrition: Regular diet for now PT: Guarded Destini Murphy MD Internal Medicine Resident, PGY-2 I saw And examined the patient in the ER. spoke to the surgeon I explained to the patient that the CT is negative she does not need any surgical intervention Dr. Jacob Young agrees with me on this matter Patient is being admitted for pain control Date of Service: May 30, 2025 Billing Provider: KATHARINA CRAIN MD Common Visit Codes: [id number] INP/OBS CARE (HIGH) DESTINI MURPHY, RES May 30, 2025 19:21 KATHARINA CRAIN MD May 31, 2025 08:21
[2025-05-30] MEDS: docusate sod 100mg capsule PO SCH (20:00)
[2025-05-30] MEDS: K and/or MAG REPLACEMENT MC SCH (20:33)
--- NOTE | 2025-05-30 20:46 | CONSULTATION REPORT ---
Consult Providers to CC ~ History of Present Illness Reason for Admit\Complaint: Abdominal pain localized to the right upper quadrant History of Present Illness 64-year-old female presented to the emergency room with above complaints. Patient with known history of ovarian carcinoma status post total abdominal hysterectomy in 2017. At that time, person did not undergo any adjuvant therapy. Patient is known to the practice for chronic right upper quadrant pain. Patient had radiological studies which did not show any significant gallbladder pathology. Multiple CT scans have demonstrated findings consistent with carcinomatosis and ascites. Other associated symptoms include nausea, vomiting. She denies any fever, chills, diarrhea. She is able to have bowel movements daily but does experience intermittent constipation. Other main complaint is abdominal distention and bloating. Patient had a recent admission at [facility] with the same complaints. Evaluation at that time included a CT scan which revealed no evidence for acute cholecystitis but did show ascites. She underwent paracentesis, and consequently discharged home without any surgical intervention. Allergies: Coded Allergies: cyclobenzaprine (Unverified Allergy, Unknown, 05/30/25) quetiapine (Unverified Allergy, Unknown, 05/30/25) Home Medications Home Medications Active Synthroid* (Levothyroxine Sodium) 25 Mcg Tablet 1 Tab PO DAILY 30 Days Spironolactone 25 Mg Tablet 25 Mg PO DAILY Lasix (Furosemide) 20 Mg Tablet 20 Mg PO DAILY 30 Days Reported Metoprolol Succinate 25 Mg Tab.sr.24h 1 Tab PO HS Atarax* (Hydroxyzine HCl) 25 Mg Tablet 1 Tab PO DAILY Ibuprofen 800 Mg Tablet 1 Tab PO DAILY PRN Ativan (Lorazepam) 1 Mg Tablet 1 Tab PO TID PRN Levothyroxine Sodium 75 Mcg Tablet 1 Tab PO DAILY Past Medical History Past Medical History Ovarian cancer, status post hysterectomy. Currently now with carcinomatosis. Past Surgical History Surgical History Comment Total abdominal hysterectomy for ovarian cancer Family History Family History: FH: COPD (chronic obstructive pulmonary disease) FATHER MOTHER Past Social History Social History Comment Denies any alcohol abuse, or use of illicit drugs ROS ROS All movements are normal limits except HPI Exam Vitals: Vital Signs Date Time Temp Pulse Resp B/P (MAP) Pulse Ox O2 Delivery O2 Flow Rate FiO2 05/30/25 20:28 16 05/30/25 19:20 115 98 0 05/30/25 18:15 97.9 General: Appears emaciated, mild distress and anxious HEENT: NC/AT, [place], no nasal discharge, no pharyngeal exudate Neck: Supple, nontender Chest: Clear to auscultation Cardiovascular: Regular rate and rhythm Abdomen: Soft, distended, + mild to moderate right upper quadrant tenderness, no guarding, no rebound Extremities: No clubbing, cyanosis or edema Central Nervous System: Alert and oriented x3, no gross deficits Musculoskeletal: Good range of motion, no significant loss of strength Skin: Warm, dry, no diaphoresis Diagnostic Data Last Recorded Lab Results: 05/30/25 1432 05/30/25 1432 Problems: (1) Abdominal carcinomatosis Status: Chronic Assessment & Plan: No plans for any emergent surgical intervention (2) Abdominal pain Status: Chronic Assessment & Plan: Assessment: Carcinomatosis, and ascites. Gallbladder without significant pathology. Liver function tests currently all within normal limits. Plan: No plans for any urgent or emergent surgical intervention. Recommend paracentesis by Interventional Radiology. Need to obtain documentation of elevated ovarian tumor markers. Problem Qualifiers (1) Abdominal pain: Abdominal location: right upper quadrant Qualified Codes: R10.11 - Right upper quadrant pain RAYNA ALLRED DO May 30, 2025 20:46
[2025-05-30] MEDS ORDERED: ketorolac trometh 15mg/ml vial 15 MG/ML ML IM PRN (21:35)
[2025-05-30 22:00] VITALS: BP 145/74; PULSE 111; RESP 18; TEMP 98.9; O2SAT 93
[2025-05-30] MEDS: ketorolac trometh 15mg/ml vial 15 MG/ML ML IV PRN (23:20)
[2025-05-30] MEDS ORDERED: POTASSIUM BICARB 20meq eff tab 20 MEQ TABLET.EFF PO PRN (23:35)
[2025-05-31] VITALS (7 sets, daily range): BP systolic 102–134; BP diastolic 49–77; PULSE 77–117; RESP 14–16; TEMP 97.5–98.6; O2SAT 94–98
[2025-05-31] MEDS: POTASSIUM BICARB 20meq eff tab 20 MEQ TABLET.EFF PO PRN (00:07)
[2025-05-31 05:05] LABS: MEAN PLATELET VOLUME 7.0 FL (7.4-10.4); RED CELL DISTRIBUTION WIDTH 13.7 % (11.5-14.5)
[2025-05-31 05:10] LABS: CHOL/HDL RATIO 4.6 (0.00-4.99); CREATININE 0.66 MG/DL (0.40-0.90); LDL CHOLESTEROL 109 MG/DL (50-100); TOTAL CARBON DIOXIDE 31.7 MMOL/L (24-32); eCRCL 60 ML/MIN; eGFR 90 ML/MIN
[2025-05-31] MEDS: metoclopramide 5 mg/ml inj IV SCH (07:00)
[2025-05-31 09:57] LABS: APTT 29 SECONDS (22-32); INR 1.1 INR
[2025-05-31] MEDS: CefTRIAXone/D5W-Rocephin 1gm 50 ML IV SCH (10:35)
[2025-05-31] MEDS ORDERED: morphine 4 MG/ML inj SYRINge IV PRN (10:38)
--- NOTE | 2025-05-31 10:47 | CONSULTATION REPORT - RESIDENT ---
Consult Providers to CC Resident Creating Document: ROLANDO TAN CC: FARSHAD DAWN MD History of Present Illness Reason for Admit\Complaint: Abdominal pain History of Present Illness Patient is a 64-year-old female with history of ovarian carcinoma diagnosed in 2017 status post hysterectomy (now with known carcinomatosis, liver lesions, ascites, and pleural effusion), presents with one month of progressively worsening right upper quadrant abdominal pain. ICU team has been consulted for therapeutic paracentesis. Allergies: Coded Allergies: cyclobenzaprine (Unverified Allergy, Unknown, 05/30/25) quetiapine (Unverified Allergy, Unknown, 05/30/25) Home Medications Home Medications Active Synthroid* (Levothyroxine Sodium) 25 Mcg Tablet 1 Tab PO DAILY 30 Days Spironolactone 25 Mg Tablet 25 Mg PO DAILY Lasix (Furosemide) 20 Mg Tablet 20 Mg PO DAILY 30 Days Reported Metoprolol Succinate 25 Mg Tab.sr.24h 1 Tab PO HS Atarax* (Hydroxyzine HCl) 25 Mg Tablet 1 Tab PO DAILY Ibuprofen 800 Mg Tablet 1 Tab PO DAILY PRN Ativan (Lorazepam) 1 Mg Tablet 1 Tab PO TID PRN Levothyroxine Sodium 75 Mcg Tablet 1 Tab PO DAILY Past Medical History Past Medical History Ovarian cancer (status post total hysterectomy with bilateral salpingo- oophorectomy) Hypothyroidism Past Surgical History Surgical History Comment Total thyroidectomy (secondary to multiple benign masses) Total hysterectomy with bilateral salpingo-oophorectomy Family History Family History: FH: COPD (chronic obstructive pulmonary disease) FATHER MOTHER Past Social History Social History Comment Patient denes history of smoking/ drinking alcohol nor any illicit drug use ROS ROS All systems were reviewed and found negative except for pertinent positives mentioned in HPI Exam Vitals: Vital Signs Date Time Temp Pulse Resp B/P (MAP) Pulse Ox O2 Delivery O2 Flow Rate FiO2 05/31/25 07:08 16 94 Room Air 05/31/25 06:16 98.6 117 132/60 (84) 05/30/25 19:20 0 General: General: awake, alert oriented to place, time, and person HEENT: No pallor present, no icterus, moist mucous membranes Neck: No masses and tenderness Resp: Unlabored. Lungs clear to auscultation bilaterally. Chest: Normal expansion Cardiovascular: Regular Rate and rhythm, normal S1 and S2 without murmur, rub or gallop Abdomen: Distended and and slightly tender, ascitic wave palpated. No guarding and rigidity, bowel sounds present Neuro: No focal weakness in the upper and lower limb muscles, power of the muscles 5/5 bilateral upper and lower extremities, normal reflexes bilaterally. Cranial nerves intact Extremities: No cyanosis,clubbing or edema Skin: Warm and Dry. No lesions Psych: Normal affect Diagnostic Data Last Recorded Lab Results: [id number]/[id number] Diagnostic Data: Laboratory Tests Test 05/31/25 09:14 Prothrombin Time 10.9 SECONDS (9.0-12.0) INR International Normalized Ratio 1.1 INR Activated Partial Thromboplast Time 29 SECONDS (22-32) Coagulation Comments Additional Plan Ovarian Carcinoma with Carcinomatosis, Hepatic Lesions, Ascites, Pleural Effusion Patient will need therapeutic paracentesis Risks and benefits of the procedure were discussed with the patient. She wishes to proceed. Rest as per hospitalist team Rolando Khan MD Internal Medicine Resident PGY-2 Date of Service: May 31, 2025 Billing Provider: FARSHAD DAWN MD, LEONARDO LUIS May 31, 2025 10:47
--- NOTE | 2025-05-31 11:36 | PROCEDURE NOTE- Residance ---
Procedure Note Providers to CC CC: FARSHAD DAWN MD ~ Planned Procedure Therapeutic Paracentesis Indications Ascites Loom Doffer Resident: Dr Khan Attending: Dr Dawn Informed Consent Obtained Description A time-out was performed. My hands were washed immediately prior to the procedure. I wore a surgical cap, mask with protective eyewear, sterile gown and sterile gloves throughout the procedure. The area was cleansed and draped in usual sterile fashion using chlorhexidine scrub. Anesthesia was achieved with 1% lidocaine. The left lower quadrant of the abdomen was prepped and draped in a sterile fashion using chlorhexidine scrub. 1% lidocaine was used to numb the skin, soft tissue and peritoneum. The paracentesis catheter was inserted and advanced with negative pressure until emely colored fluid was aspirated. The catheter was then connected to the vaccutainer and 1.9 liters of ascitic fluid were drained. The catheter was removed and no leaking was noted. A bandaid was p laced over the puncture wound. The patient tolerated the procedure well without any immediate complications. Estimated blood loss was minimal. Date of Service: May 31, 2025 Billing Provider: FARSHAD DAWN MDJOSE COLEMAN May 31, 2025 11:36
--- NOTE | 2025-05-31 12:09 | RADIOLOGY REPORT ---
PROCEDURE: ULTRASOUND GUIDED PARACENTESIS HISTORY: 64 Female requiring paracentesis. TECHNIQUE: The risks and benefits of the procedure including but not limited to bleeding, infection and injury to abdominal organs were explained to the patient and written informed consent was obtained. Optimal site for puncture was determined using ultrasound and the area sterilized and draped. Using a 5 [place] catheter, paracentesis was performed in the left lower abdomen. Approximately 1.9 liters of left lower fluid was removed. The patient tolerated the procedure well. There were no imme diate complications. IMPRESSION: Ultrasound-guided paracentesis with no immediate complications.
[2025-05-31 12:21] LABS: CREATININE 0.61 MG/DL (0.40-0.90); eCRCL 64 ML/MIN; eGFR > 90 ML/MIN
--- NOTE | 2025-05-31 12:48 | PROGRESS NOTE- Residence ---
Progress Note - Resident Providers to CC Resident Creating Document: DESTINI DEUTSCH RES ~ Antibiotic Timeout Antibiotic Ordered?: Yes Subjective Patient was seen and examined at bedside, denied abdominal pain today. Patient underwent paracentesis and approximately 9000 mL of straw-colored fluid was drained. Objective Vital Signs Date Time Temp Pulse Resp B/P (MAP) Pulse Ox O2 Delivery O2 Flow Rate FiO2 05/31/25 12:40 75 05/31/25 11:11 16 134/67 (89) 98 Room Air 05/31/25 10:57 97.5 05/30/25 19:20 0 Result Diagram: 05/31/25 0423 05/31/25 1154 Awake , alert, and oriented x4, in apparent distress HEENT: Atraumatic, normocephalic, EOMI, anicteric sclera ; pink conjunctiva Neck: Trachea midline. Supple, full range of motion, no JVD Cardiac: Regular rhythm, regular rate with systolic murmurs all over the precordium. Respiratory: Equal breath sounds bilaterally, no tachypnea, no wheezing ,rub or rales, Chest wall is symmetric and without deformity. Gastrointestinal: Abdomen symmetric, non-distended, no tenderness, no hepatosplenomegaly. Bowel sounds heard Musculoskeletal: No pedal edema, no cyanosis Neurological: Speech is clear, alert, and oriented x 4. No motor or sensory deficit, deep tendon reflexes normal, cerebellar intact. Cranial nerves II-XII intact. Skin: Warm and dry Coagulation Studies Laboratory Tests Test 05/31/25 09:14 Prothrombin Time 10.9 SECONDS (9.0-12.0) INR International Normalized Ratio 1.1 INR Activated Partial Thromboplast Time 29 SECONDS (22-32) Coagulation Comments Advance Care Planning Advanced Care plannin - 30 Minutes Plan Plan Ovarian Carcinoma with Carcinomatosis, Hepatic Lesions, Ascites, Pleural Effusion RUQ Pain secondary to above Moderate ascites secondary to above Possible SBP Repeat CT this admission showed: Hysterectomy with bilateral salpingooophorectomy. Similar periods of peritoneal carcinomatosis with moderate amount of ascites, moderate omental caking, and extensive peritoneal soft tissue nodules. Trace right pleural effusion 1 month of postprandial sharp RUQ pain with nausea/vomiting and poor PO intake History of gallbladder sludge; referred by surgeon (Dr. Young) for possible cholecystectomy per patient But, according Dr. Young, no further surgery and patient requires pain management CT abdomen/pelvis: stable carcinomatosis, no acute cholecystitis or obstruction LFTs normal Admit to surgical floor NPO after midnight pending surgical evaluation Pain control with multimodal analgesia; opioids PRN Antiemetics (ondansetron) PRN Dr. Young to evaluate for surgical intervention 05/31/2025: Vitals are stable Patient currently denies any abdominal pain Therapeutic and diagnostic paracentesis was done today 1900 mL of fluid was drained out IV fluids: Discontinued Continue pain management with opioids and morphine Dr. Young, was consulted; recommended No plans for any urgent or emergent surgical intervention. Ca in 125 was elevated at around 3125 last admit As patient has a abdominal tenderness with the ascites, empirically initiated Rocephin, for possible diagnosis of SBP Initiated Lasix 20 mg p.o. b.i.d., spironolactone 25 mg p.o. daily Abdominal pain History of umbilical hernia History of ovarian cancer- cancer free for several years however recent CA 125 was markedly elevated Ovarian Carcinoma with Carcinomatosis, Hepatic Lesions, Ascites, Pleural Effusion Advanced disease; poor oral intake, 2040 lb weight loss over past 46 months Patient follows valvular Oncology outpatient Consider palliative care consult for symptom management and [id number] discussions Malnutrition / Weight Loss Severe weight loss due to poor oral intake and chronic pain/nausea Nutrition consult for assessment IV fluids on hold, electrolyte monitoring/repletion Nausea/Vomiting Likely multifactorial (carcinomatosis) Continue antiemetics PRN Code Status: Full code Analgesia/ Sedation: Morphine/Dilaudid Line/tubes: P IV GI Prophylaxis: Protonix Nutrition: Regular diet for now PT: Guarded Destini Deutsch MD Internal Medicine Resident, PGY-2 Date of Service: May 31, 2025 Billing Provider: KATHARINA CRAIN MD,DESTINI, RES May 31, 2025 12:48
--- NOTE | 2025-05-31 14:05 | PROGRESS NOTE ---
Progress Note Dictate Providers to CC ~ Progress Note: Patient admitted for abdominal pain. Patient currently seen, denies abdominal pain. States to feel better after paracentesis this morning. Tolerating diet. Antibiotic Ordered?: N/A Subjective Subjective Patient states to feel better after paracentesis. Denies any fever, chills. Abdominal pain significantly improved. Objective Vitals Vital Signs Date Time Temp Pulse Resp B/P (MAP) Pulse Ox O2 Delivery O2 Flow Rate FiO2 05/31/25 12:40 75 05/31/25 11:11 16 134/67 (89) 98 Room Air 05/31/25 10:57 97.5 05/30/25 19:20 0 Lab Results: 05/31/25 0423 05/31/25 1154 Objective Abdomen: Soft, significantly less distended, nontender Coagulation Studies Laboratory Tests Test 05/31/25 09:14 Prothrombin Time 10.9 SECONDS (9.0-12.0) INR International Normalized Ratio 1.1 INR Activated Partial Thromboplast Time 29 SECONDS (22-32) Coagulation Comments Problem\Assessment\Plan Problems/Diagnosis: (1) Abdominal carcinomatosis Assessment & Plan: Assessment: Carcinomatosis (history of ovarian cancer) Plan: Paracentesis performed this morning with symptomatic relief. Recommend immediate referral to medical oncologist (Dr.Promila Smart). Recommend regularly scheduled outpatient paracentesis with Interventional Radiology. No further acute surgical follow-up present time. Cleared from surgical perspective. (2) Abdominal pain Assessment & Plan: Assessment: Abdominal pain resolved status post paracentesis. Plan: Recommend regularly scheduled paracentesis by Interventional Radiology Problem Qualifiers (1) Abdominal pain: Qualified Codes: R10.11 - Right upper quadrant pain RAYNA ALLRED DO May 31, 2025 14:05
[2025-06-01 04:59] LABS: MEAN PLATELET VOLUME 6.8 FL (7.4-10.4); RED CELL DISTRIBUTION WIDTH 13.9 % (11.5-14.5)
[2025-06-01 05:14] LABS: CREATININE 0.75 MG/DL (0.40-0.90); TOTAL CARBON DIOXIDE 32.0 MMOL/L (24-32); eCRCL 52 ML/MIN; eGFR 78 ML/MIN
[2025-06-01 07:00] VITALS: RESP 14; O2SAT 95
[2025-06-01 07:02] VITALS: BP 110/58; PULSE 95; RESP 14; TEMP 98.3; O2SAT 96
[2025-06-01 09:25] VITALS: RESP 14; O2SAT 96
[2025-06-01 10:44] VITALS: BP 104/58; PULSE 100; RESP 17; TEMP 97.4; O2SAT 94
[2025-06-01] MEDS ORDERED: PANT-47 PO (12:44)
--- NOTE | 2025-06-01 16:33 | DISCHARGE SUMMARY-Residence ---
Discharge Summary Providers to CC Resident Creating Document: DESTINI MURPHY, RES ~ Discharge Summary Admission Diagnosis: Pain secondary to Carcinomatosis Hospital Course DATE OF ADMISSION: 05/30/2025 DATE OF DISCHARGE: 06/01/2025 Discharge Diagnosis\Comment: Ovarian Carcinoma with Carcinomatosis, Hepatic Lesions, Ascites, Pleural Effusion RUQ Pain secondary to above Moderate ascites secondary to above Possible SBP, ruled out Abdominal pain History of umbilical hernia History of ovarian cancer- cancer free for several years however recent CA 125 was markedly elevated Ovarian Carcinoma with Carcinomatosis, Hepatic Lesions, Ascites, Pleural Effusion Malnutrition / Weight Loss Nausea/Vomiting Operations\Procedures: None Consultants: General surgery Complications: None Condition on DC: Stable Discharge Summary: HPI as per admitting physician: A 64-year-old female with history of ovarian carcinoma diagnosed in 2017 (status post hysterectomy, now with known carcinomatosis, liver lesions, ascites, and pleural effusion), presents with one month of progressively worsening right upper quadrant abdominal pain. The pain is sharp and shooting, typically triggered by eating, and has been associated with nausea and occasional vomiting. Because of this, she has had markedly reduced oral intake and reports unintentional weight loss of approximately 2040 lbs over the past 46 months. She denies fevers, chills, jaundice, chest pain, or shortness of breath. She was evaluated by her oncology team and referred to her general surgeon, Dr. Young, who advised admission for further evaluation and possible cholecystectomy. The patient was previously seen at [facility] in April for similar symptoms, where liver lesions were noted. In the ED today, vitals are stable, labs including LFTs are unremarkable, and repeat CT scan shows stable carcinomatosis without acute new findings. Patient had a previous admission in April, where a CT scan was done for possible suspicion of acute cholecystitis but however patient had ascites which required repeated paracentesis. Also, HIDA was negative hence she did not undergo any surgery and was discharged home. Hospital course: The patient is a female with a history of ovarian carcinoma, now with advanced disease complicated by peritoneal carcinomatosis, hepatic lesions, ascites, omental caking, peritoneal nodules, and trace pleural effusion. She was admitted with complaints of right upper quadrant abdominal pain, nausea/vomiting, and poor oral intake. On admission, vitals were stable. CT abdomen/pelvis demonstrated stable carcinomatosis without evidence of acute cholecystitis or obstruction. LFTs were within normal limits. CA-125 had been markedly elevated (3125 at prior admission). She underwent therapeutic and diagnostic paracentesis with removal of 1900 mL of ascitic fluid. Given abdominal tenderness and concern for possible SBP, empiric ceftriaxone was initiated. Diuretic therapy was started with furosemide 20 mg PO BID and spironolactone 25 mg PO daily. IV fluids were discontinued and electrolytes monitored with repletion as needed. Surgical evaluation by Dr. Young concluded that there is no role for urgent or emergent surgical intervention, including cholecystectomy, and management should focus on pain control. Pain was managed with multimodal analgesia and PRN opioids. Antiemetics were continued as needed. She experienced significant weight loss (2040 lbs over 46 months) and malnutrition due to poor PO intake and chronic abdominal pain/nausea. Nutrition consult was placed for assessment. Given advanced disease and symptom burden, a palliative care consult was recommended for [id number] discussions and symptom management. At the time of discharge, the patient was stable, abdominal pain had improved, and she denied acute complaints. She will continue outpatient follow-up with oncology and primary care, with scheduled outpatient paracenteses arranged through her PCP for symptomatic ascites management. Physical examination today: Awake , alert, and oriented x4, in apparent distress HEENT: Atraumatic, normocephalic, EOMI, anicteric sclera ; pink conjunctiva Neck: Trachea midline. Supple, full range of motion, no JVD Cardiac: Regular rhythm, regular rate with systolic murmurs all over the precordium. Respiratory: Equal breath sounds bilaterally, no tachypnea, no wheezing ,rub or rales, Chest wall is symmetric and without deformity. Gastrointestinal: Abdomen symmetric, non-distended, no tenderness, no hepatosplenomegaly. Bowel sounds heard Musculoskeletal: No pedal edema, no cyanosis Neurological: Speech is clear, alert, and oriented x 4. No motor or sensory deficit, deep tendon reflexes normal, cerebellar intact. Cranial nerves II-XII intact. Skin: Warm and dry Laboratory Tests Test 05/31/25 09:14 05/31/25 10:50 05/31/25 11:54 06/01/25 04:29 Prothrombin Time 10.9 SECONDS INR International Normalized Ratio 1.1 INR Activated Partial Thromboplast Time 29 SECONDS Coagulation Comments Creatinine 0.61 MG/DL 0.75 MG/DL Estimated GFR/1.73 m2 > 90 ML/MIN 78 ML/MIN White Blood Count 7.7 X10'3 Red Blood Count 4.43 X10'6 Hemoglobin 11.2 g/dl Hematocrit 34.6 % Mean Corpuscular Volume 78.1 FL Mean Corpuscular Hemoglobin 25.4 PG Mean Corpuscular Hemoglobin Concent 32.5 g/dL Red Cell Distribution Width 13.9 % Platelet Count 547 X10'3 Mean Platelet Volume 6.8 FL Neutrophils (%) (Auto) 74.9 % Lymphocytes (%) (Auto) 11.0 % Monocytes (%) (Auto) 10.2 % Eosinophils (%) (Auto) 2.8 % Basophils (%) (Auto) 1.1 % Neutrophils # (Auto) 5.8 X10'3 Lymphocytes # (Auto) 0.8 X10'3 Monocytes # (Auto) 0.8 X10'3 Eosinophils # (Auto) 0.2 X10'3 Basophils # (Auto) 0.1 X10'3 CBC Comment Sodium Level 136 MMOL/L Potassium Level 4.4 MMOL/L Chloride Level 101 MMOL/L Carbon Dioxide Level 32.0 MMOL/L Anion Gap 3 Blood Urea Nitrogen 8 MG/DL BUN/Creatinine Ratio 10.7 Glucose Level 96 MG/DL Calcium Level 8.2 MG/DL Magnesium Level 2.3 MG/DL Total Bilirubin 0.4 MG/DL Aspartate Amino Transf (AST/SGOT) 18 U/L Alanine Aminotransferase (ALT/SGPT) 11 U/L Alkaline Phosphatase 49 IU/L Total Protein 5.4 G/DL Albumin 2.0 G/DL Globulin 3.4 G/DL Albumin/Globulin Ratio 0.6 Chemistry Comments Advise on discharge - please follow up with your primary care provider, for his scheduled paracentesis outpatient - follow up with outpatient Oncology per your appointment - if any emergencies or worsening of symptoms like abdominal pain or nausea or vomiting please come to the ED *Problems/Diagnosis: (1) Abdominal carcinomatosis Status: Chronic (2) Abdominal pain Status: Chronic Total Time Spent on D/C: > 30 Minutes Date of Service: Jun 02, 2025 Billing Provider: KATHARINA CRAIN MD Problem Qualifiers (1) Abdominal pain: Abdominal location: right upper quadrant Qualified Codes: R10.11 - Right upper quadrant pain DESTINI MURPHY, RES Jun 01, 2025 16:33
== END 2025-06-01 14:15 | disposition home or self-care (01) | DRG 375 ==
LOC: ER 14:04 → ED HOLD 19:39 → SUR 3N 21:19
PROVIDERS: ADMIT Internal Medicine; ATTEND Internal Medicine
PROC: BW211ZZ Computerized Tomography (CT Scan) of Abdomen and Pelvis using Low Osmolar Contrast (ICD-10-PCS; principal; 2025-05-30)
PROC: 0W9G3ZZ Drainage of Peritoneal Cavity, Percutaneous Approach (ICD-10-PCS; 2025-05-31)
DX: C78.6 Secondary malignant neoplasm of retroperitoneum and peritoneum (principal); E46 Unspecified protein-calorie malnutrition; J90 Pleural effusion, not elsewhere classified; R18.8 Other ascites; K76.9 Liver disease, unspecified; J44.9 Chronic obstructive pulmonary disease, unspecified; K59.00 Constipation, unspecified; Z90.710 Acquired absence of both cervix and uterus; Z82.5 Family history of asthma and other chronic lower respiratory diseases; Z85.43 Personal history of malignant neoplasm of ovary; Z68.21 Body mass index [BMI] 21.0-21.9, adult
CPT/HCPCS: 36415; 49083; 74177; 80053; 80061; 81001; 82565; 83036; 83690; 83735; 85025; 85610; 85730; 86304; 87081; 96361; 96374; 96375; 96376; 99285; G0378; J0696; J1885; J1938; J2270; J2405; J2470; J2765; J7030; Q9967

== ENCOUNTER 2025-06-26 13:28 | Emergency (ER) | payer BC ==
[~2025-06-26] VITALS: Ht 149.9 cm; Wt 44.5 kg
[~2025-06-26 13:28] MED LIST changes: -HYDR-3686 PO; -LEVO25TA2 PO; +PANT-47 PO
[2025-06-26 13:37] VITALS: BP 115/72; PULSE 100; RESP 16; TEMP 97.7; O2SAT 100
== END 2025-06-26 15:46 | disposition left against medical advice (07) ==
LOC: ER 13:29
DX: R10.9 Unspecified abdominal pain (principal)
CPT/HCPCS: 99281